=== PATIENT | female | born 1975 | race Caucasian/White ===

== ENCOUNTER 2021-02-27 21:55 | Emergency (ER) | payer BC ==
[~2021-02-27] VITALS: Ht 149.9 cm; Wt 75.7 kg
[2021-02-27] MEDS ORDERED: ONDANSETRON HCL INJ 2MG/ML 2ML 2 MG/ML VIAL IV STA (22:20)
[2021-02-27] MEDS ORDERED: KETOROLAC TROMETHAMINE 30 MG/ML VIAL IV STA (22:20)
[2021-02-27] MEDS ORDERED: SODIUM CHLORIDE 0.9% 1000ML 1,000 ML IV SCH (22:30)
[2021-02-27] MEDS ORDERED: SODIUM CHLORIDE 0.9% 50ML 50 ML ONE (22:37)
[2021-02-27] MEDS ORDERED: IOPAMIDOL 370 MG/ML 200 ML INFUS..BTL INJ ONE (22:37)
[2021-02-27] MEDS ORDERED: MORPHINE SULFATE INJ 4 MG/ML INJ 1ML IV PRN (23:00)
[2021-02-27] MEDS ORDERED: MORPHINE SULFATE INJ 4 MG/ML INJ 1ML ONE (23:09)
[2021-02-27] MEDS ORDERED: METOCLOPRAMIDE HCL 10 MG/2ML VIAL IV ONE (23:45)
[2021-02-28] MEDS ORDERED: METOCLOPRAMIDE HCL 10 MG/2ML VIAL ONE (00:12)
[2021-02-28] MEDS ORDERED: IBUPROFEN600 MG PO (00:40)
[2021-02-28] MEDS ORDERED: ONDANSETRON ODT4 MG PO (00:40)
[2021-02-28] MEDS ORDERED: FLOMAX0.4 MG PO (00:40)
[2021-02-28] MEDS ORDERED: ULTRAM50 MG PO (00:40)
== END 2021-02-28 01:04 | disposition home or self-care (01) ==
LOC: FSED 22:25
DX: R10.31 Right lower quadrant pain (principal); N20.0 Calculus of kidney; K80.20 Calculus of gallbladder without cholecystitis without obstruction; K44.9 Diaphragmatic hernia without obstruction or gangrene
CPT/HCPCS: 74177; 80053; 81003; 85025; 99284; J2270; J2765; Q9967